=== PATIENT | female | born 1960 | race Caucasian/White ===

== ENCOUNTER 2016-11-24 19:40 | Emergency (ER) | payer OTHER ==
[~2016-11-24] VITALS: Ht 152.4 cm; Wt 84.5 kg
[~2016-11-24 19:40] MED LIST: ERGO500014 PO; FENO145T19 PO; HYDR-902 PO; IBUP-1542 PO; MECL12.574 PO; METO25TA4 PO; OMEP20CA16 PO; ONDA4TAB14 PO; SERT50TA6 PO
[2016-11-24 20:14] VITALS: Ht 152.4 cm; Wt 84.5 kg
--- NOTE | 2016-11-24 22:09 | ERD ---
ER Documentation Chief Complaint Date/Time DATE: 11/24/16 TIME: 22:05 Chief Complaint glf yesterday- right ankle pain; hand/finger pain HPI Patient is a 56-year-old female who presents to the ED with right ankle pain, hand pain, face pain after sustaining a fall yesterday at the grocery store. She states that she tripped over a wooden palate that was on the ground. She said that she landed on the side of her face. She denies hitting her head, blacking out or losing consciousness. She denies headache or dizziness today. She denies blurry vision. Or weakness. She states that she has pain in her right foot. She is able to ambulate but with pain. She also states that she has pain in her right and left hand. She is able to move her fingers. She denies any elbow or shoulder pain. She denies any pain at her ankle or above the ankle at the knee or hip. She denies fever or chills. She denies abdominal pain, nausea, vomiting or diarrhea. She has taken Aleve which has helped with her symptoms. ROS All systems reviewed and are negative except as per history of present illness. Medications Home Meds Active Scripts Acetaminophen* (Tylophen*) 500 Mg Capsule, 1 CAP PO Q6H Y for PAIN AND OR ELEVATED TEMP, #20 CAP Prov:EMANI PULLIAM PA-C 11/24/16 Ondansetron (Ondansetron Odt) 4 Mg Tab.rapdis, 4 MG PO Q6H Y for NAUSEA AND/OR VOMITING, #30 TAB Prov:SANA IRENE MD 09/30/16 Hydrocodone/Acetaminophen ([place] 10-325 Tablet) 1 Each Tablet, 1 TAB PO Q6H Y for PAIN, #12 TAB Prov:SANA IRENE MD 09/30/16 Reported Medications Ergocalciferol* (Drisdol* (Vitamin D2)) 50,000 Unit Capsule, 03242 UNIT PO Q15D , CAP 09/30/16 Metoprolol Tartrate* (Lopressor*) 25 Mg Tablet, 25 MG PO BID, #60 TAB TAKE 1 OR 2 TIMES DAILY 09/30/16 Sertraline Hcl* (Sertraline Hcl*) 50 Mg Tablet, 50 MG PO DAILY, #30 TAB 09/30/16 Omeprazole* (Omeprazole*) 20 Mg Capsule.dr, 20 MG PO DAILY, #30 CAP 09/30/16 Fenofibrate Nanocrystallized* (Fenofibrate*) 145 Mg Tablet, 145 MG PO DAILY, TAB 09/30/16 Meclizine Hcl* (Antivert*) 12.5 Mg Tab, 12.5 MG PO BID, #30 TAB 09/30/16 Ibuprofen* (Ibuprofen*) 600 Mg Tablet, 600 MG PO TID Y for PAIN, TAB 09/30/16 Allergies Allergies: Coded Allergies: No Known Allergy (Unverified , 09/30/16) PMhx/Soc History of Surgery: Yes (appendectomy) Anesthesia Reaction: No Hx Neurological Disorder: No Hx Respiratory Disorders: No Hx Cardiac Disorders: Yes (htn) Hx Psychiatric Problems: No Hx Miscellaneous Medical Probl: No Hx Alcohol Use: No Hx Substance Use: No Hx Tobacco Use: No Physical Exam Vitals Vital Signs Date Time Temp Pulse Resp B/P Pulse Ox O2 Delivery O2 Flow Rate FiO2 11/24/16 20:14 98.7 91 18 144/91 98 Physical Exam GENERAL: Well-developed, well-nourished female. Appears in no acute distress. HEAD: Normocephalic, atraumatic. Small contusion at the left mandible. No signs of fracture or deformities. EYES: Pupils are equally reactive bilaterally. EOMs grossly intact. No conjunctival erythema. ENT: Moist mucous membranes. No uvula deviation. No kissing tonsils. No exudates. NECK: Supple. No lymphadenopathy or thyromegaly. No meningismus. negative kernig. negative brudinski. LUNG: Clear to auscultation bilaterally. No rhonchi, wheezing, rales or coarse breath sounds. HEART: Regular rate and rhythm. No murmurs, rubs or gallops. Extremities: Equal pulses bilaterally. No peripheral clubbing, cyanosis or edema. No unilateral leg swelling. Ecchymosis, slight swelling and tenderness to the dorsal aspect of the foot. Slight tenderness to the base of the fifth metatarsal. No tenderness to both malleoli. No redness, deformities step-offs or signs of infection. Range of motion intact. There is also mild ecchymosis and tenderness to the fifth and fourth digit of the right hand. No tenderness to the wrist arm, elbow or shoulder. Radial ulnar and median nerve intact bilaterally. Pulses intact bilaterally. Patient is able to flex and extend, with good range of motion with no pain. Left hand has slight ecchymosis on the dorsal aspect of the hand. No tenderness to the wrist, elbow, arm or shoulder. No radiation of pain. No snuffbox tenderness bilaterally. NEUROLOGIC: Alert and oriented. Moving all four extremities. 5/5 strength in all extremities. Normal speech. Steady gait. Cranial nerves II through XII intact. SKIN: Normal color. Warm and dry. No rashes or lesions. Capillary refill < 2 seconds Procedures/MDM ER COURSE: I kept the patient and/or family informed of laboratory and diagnostic imaging results throughout the emergency room course. EKG, MONITORS, & DIAGNOSTIC IMAGING: [place] [address] Radiology Main Line: [phone] DIAGNOSTIC IMAGING REPORT Patient: BRITTANY VELA : 1960 Age: 56 Sex: F MR #: [id number] DOS: 11/24/16 2150 Ordering MD: EMANI PULLIAM PA-C Location: [facility] Room/Bed: PROCEDURE: CT Maxillofacial without Contrast CLINICAL INDICATION: History of left base pain after sustaining fall TECHNIQUE: Transaxial images were obtained through the maxillofacial region on a multi-slice scanner without the intravenous contrast administration. Sagittal and coronal re-formations were subsequently reconstructed. One or more of the following dose reduction techniques were used: - Automated exposure control. - Adjustment of the mA and/or kV according to patient size. - Use of iterative reconstruction technique. Radiation dose: CTDIvol = 29.40 mGy; DLP = 495.1 7th mGy-cm. COMPARISON: No prior studies are available for comparison. FINDINGS: Osseous structures: The osseous elements including the mandible appear intact with no fracture or destructive process evident. There is straightening of the normal lordotic curvature to the cervical spine with degenerative endplate changes noted. Paranasal sinuses: Appear well developed and well aerated with no opacification , air-fluid level or mucoperiosteal thickening evident. Mastoid air cells: Appear well pneumatized. Temporomandibular joints: Appear unremarkable. Orbits: The ocular globes, optic nerves, and intraorbital contents appear unremarkable. Soft tissues: Appear unremarkable. IMPRESSION: 1. Straightening of the normal lordotic curvature to the cervical spine with degenerative disk and endplate changes evident. 2. Unremarkable maxillofacial CT. Physician Hi Date Time Electronically viewed and signed by Physician Hi on 11/24/2016 22:30 RH/ CC: EMANI PULLIAM PA-C [place] [address] Radiology Main Line: [phone] DIAGNOSTIC IMAGING REPORT Patient: BRITTANY VELA : 1960 Age: 56 Sex: F MR #: [id number] DOS: 11/24/167 Ordering MD: EMANI PULLIAM PA-C Location: [facility] Room/Bed: PROCEDURE: XR Right Foot CLINICAL INDICATION: Pain TECHNIQUE: AP, oblique, and lateral radiographs were submitted. COMPARISON: None FINDINGS: Osseous structures: appear well mineralized and intact with no fracture or destructive process identified. There is a spurring off the calcaneus at the insertion of the plantar aponeurosis. Joint spaces: are well maintained, with no significant spurring, erosion or joint effusion evident. Soft tissues: There is slight soft tissue prominence dorsal to the metatarsal region. IMPRESSION: 1. Mild calcaneal spurring 2. Soft tissue prominence dorsal to the metatarsals. 3. Otherwise, unremarkable right foot series. Physician Hi Date Time Electronically viewed and signed by Physician Hi on 11/24/2016 22:14 RH/ CC: EMANI PULLIAM PA-C [place] [address] Radiology Main Line: [phone] DIAGNOSTIC IMAGING REPORT Patient: BRITTANY VELA : 1960 Age: 56 Sex: F MR #: [id number] DOS: 11/24/162146 Ordering MD: EMANI PULLIAM PA-C Location: [facility] Room/Bed: PROCEDURE: XR Right Hand CLINICAL INDICATION: Pain TECHNIQUE: AP, oblique, and lateral radiographs were submitted. COMPARISON: None FINDINGS: Osseous structures: appear well mineralized and intact with no fracture or destructive process identified. Joint spaces: are well maintained, with no significant spurring, erosion or joint effusion evident. Soft tissues: appear unremarkable. IMPRESSION: Unremarkable right hand. Physician Hi Date Time Electronically viewed and signed by Physician Hi on 11/24/2016 22:16 RH/ CC: EMANI PULLIAM PA-C [place] [address] Radiology Main Line: [phone] DIAGNOSTIC IMAGING REPORT Patient: BRITTANY VELA : 1960 Age: 56 Sex: F MR #: [id number] DOS: 11/24/162146 Ordering MD: EMANI PULLIAM PA-C Location: [facility] Room/Bed: PROCEDURE: XR Left Hand CLINICAL INDICATION: Pain TECHNIQUE: AP, oblique, and lateral radiographs were submitted. COMPARISON: None FINDINGS: Osseous structures: appear well mineralized and intact with no fracture or destructive process identified. Joint spaces: are well maintained, with no significant spurring, erosion or joint effusion evident. Soft tissues: appear unremarkable. IMPRESSION: Unremarkable left hand. Physician Hi Date Time Electronically viewed and signed by Physician Hi on 11/24/2016 22:13 RH/ CC: EMANI PULLIAM PA-C PROCEDURES: Ed velcro splint Assessment: Neurovascularly intact post splint placement with good fit on right and left wrist. vika wrap Assessment: Neurovascularly intact post vika wrap placement with good fit. MEDICAL DECISION MAKING: This is a 56-year-old female who presents with multiple areas of pain after sustaining a fall. Vital signs were reviewed. Patient is afebrile. Patient is not hypoxic. Patient is not toxic or ill appearing. Patient likely has wrist bilaterally sprain, and foot contusion and face contusion. Low suspicion for dislocation, fracture, septic joint, compartment syndrome, osteomyelitis, cellulitis, avascular necrosis, neurological injury, vascular injury, tendon laceration however cannot rule out ligament or tendon injury. I have low suspicion for scaphoid fracture as she does not have snuffbox tenderness and x- ray did not reveal this. I do not think a CT of the brain was necessary at this time as patient does not have headache, dizziness and did not hit her head. She did not blackout or lose consciousness. Her cranial nerves II through XII are intact. And neurovascularly intact and hemodynamically stable. I have low suspicion for arm, elbow or shoulder fractures or injuries. She does not have tenderness at these sites, no swelling, redness or deformities and good rom. DISCHARGE: At this time, patient is stable for discharge and outpatient management with no new complaints during the ER course. Patient was sent home with Tylenol. Patient will be discharged home with instructions to recheck for new or worsening symptoms such as fever, nausea, weakness, LOC and to follow up with primary care in the next 1-2 days. Patient was advised to return to the ER for any new or worsening symptoms. Plan was discussed and patient and/or family understands and agrees. Home instructions were given. Departure Diagnosis: Primary Impression: Fall Encounter type: initial encounter Qualified Code: W19.XXXA - Fall, initial encounter Condition: Stable EMANI PULLIAM PA-C Nov 24, 2016 22:08
--- NOTE | 2016-11-24 22:13 | RADRPT ---
PROCEDURE: XR Left Hand CLINICAL INDICATION: Pain TECHNIQUE: AP, oblique, and lateral radiographs were submitted. COMPARISON: None FINDINGS: Osseous structures: appear well mineralized and intact with no fracture or destructive process iden tified. Joint spaces: are well maintained, with no significant spurring, erosion or joint effusion evident. Soft tissues: appear unremarkable. IMPRESSION: Unremarkable left hand. Physician Hi Date Time Electronically viewed and signed by Physician Hi on 11/24/2016 22:13 /
--- NOTE | 2016-11-24 22:14 | RADRPT ---
PROCEDURE: XR Right Foot CLINICAL INDICATION: Pain TECHNIQUE: AP, oblique, and lateral radiographs were submitted. COMPARISON: None FINDINGS: Osseous structures: appear well mineralized and intact with no fracture or destructive process iden tified. There is a spurring off the calcaneus at the insertion of the plantar aponeurosis. Joint spaces: are well maintained, with no significant spurring, erosion or joint effusion evident. Soft tissues: There is slight soft tissue prominence dorsal to the metatarsal region. IMPRESSION: 1. Mild calcaneal spurring 2. Soft tissue prominence dorsal to the metatarsals. 3. Otherwise, unremarkable right foot series. Physician Hi Date Time Electronically viewed and signed by Physician Hi on 11/24/2016 22:14 /
--- NOTE | 2016-11-24 22:16 | RADRPT ---
PROCEDURE: XR Right Hand CLINICAL INDICATION: Pain TECHNIQUE: AP, oblique, and lateral radiographs were submitted. COMPARISON: None FINDINGS: Osseous structures: appear well mineralized and intact with no fracture or destructive process iden tified. Joint spaces: are well maintained, with no significant spurring, erosion or joint effusion evident. Soft tissues: appear unremarkable. IMPRESSION: Unremarkable right hand. Physician Hi Date Time Electronically viewed and signed by Physician Hi on 11/24/2016 22:16 /
--- NOTE | 2016-11-24 22:30 | RADRPT ---
PROCEDURE: CT Maxillofacial without Contrast CLINICAL INDICATION: History of left base pain after sustaining fall TECHNIQUE: Transaxial images were obtained through the maxillofacial region on a multi-slice scan er without the intravenous contrast administration. Sagittal and coronal re-formations were subseque ntly reconstructed. One or more of the following dose reduction techniques were used: - Automated exposure control. - Adjustment of the mA and/or kV according to patient size. - Use of iterative reconstruction technique. Radiation dose: CTDIvol = 29.40 mGy; DLP = 495.1 7th mGy-cm. COMPARISON: No prior studies are available for comparison. FINDINGS: Osseous structures: The osseous elements including the mandible appear intact with no fracture or de structive process evident. There is straightening of the normal lordotic curvature to the cervical s pine with degenerative endplate changes noted. Paranasal sinuses: Appear well developed and well aerated with no opacification, air-fluid level or mucoperiosteal thickening evident. Mastoid air cells: Appear well pneumatized. Temporomandibular joints: Appear unremarkable. Orbits: The ocular globes, optic nerves, and intraorbital contents appear unremarkable. Soft tissues: Appear unremarkable. IMPRESSION: 1. Straightening of the normal lordotic curvature to the cervical spine with degenerative disk and endplate changes evident. 2. Unremarkable maxillofacial CT. Physician Hi Date Time Electronically viewed and signed by Physician Hi on 11/24/2016 22:30 /
[2016-11-24] MEDS ORDERED: ACET500C5 PO (22:57)
== END 2016-11-24 22:58 | disposition home or self-care (01) ==
LOC: FTE 19:40
DX: S99.911A Unspecified injury of right ankle, initial encounter (principal); S69.91XA Unspecified injury of right wrist, hand and finger(s), initial encounter; S69.92XA Unspecified injury of left wrist, hand and finger(s), initial encounter; S09.93XA Unspecified injury of face, initial encounter; I10 Essential (primary) hypertension; W01.0XXA Fall on same level from slipping, tripping and stumbling without subsequent striking against object, initial encounter; Y92.9 Unspecified place or not applicable
CPT/HCPCS: 29125; 70486; 73130; 73630; Z7502

== ENCOUNTER 2017-04-14 10:37 | Emergency (ER) | payer OTHER ==
[~2017-04-14] VITALS: Ht 152.4 cm; Wt 82.5 kg
[~2017-04-14 10:37] MED LIST changes: +ACET500C5 PO
[2017-04-14 10:39] VITALS: Ht 152.4 cm; Wt 82.5 kg
[2017-04-14] MEDS ORDERED: ONDANSETRON (ODT) 4 MG TAB ODT STA (12:16)
[2017-04-14] MEDS ORDERED: ACETAMINOPHEN 325 MG TAB PO ONE (12:30)
[2017-04-14] MEDS ORDERED: MECLIZINE 12.5 MG TAB PO ONE (12:30)
[2017-04-14 12:58] LABS: URINE BLOOD (Dip) POC Negative (NEGATIVE)
--- NOTE | 2017-04-14 13:23 | RADRPT ---
PROCEDURE: CT brain without contrast CLINICAL INDICATION: Headaches, dizziness TECHNIQUE: CT of the brain without contrast was performed on a multidetector CT scanner, with multi planar reformats. One or more of the following dose reduction techniques were used: Automated expos ure control, adjustment in mA and / or kV according to patient size, use of iterative reconstructive technique. CTDIvol = 43 mGy; DLP = 630 mGy-cm. COMPARISON: None available FINDINGS: No acute intracranial hemorrhage is identified. No extra-axial fluid collection is seen. There is no mass effect. No midline shift is identified. The ventricles/sulci are mildly enlarged compatible with generalized volume loss. The density of the brain is unremarkable. Aguilar-white differentiation is preserved. Partly empty se lla is noted. Osseous structures are unremarkable. Mastoid air cells and imaged paranasal sinuses grossly clear. IMPRESSION: 1. No evidence of acute intracranial pathology. 2. Mild generalized volume loss. RPTAT: AA .Reza Farrar MD, Date Time Electronically viewed and signed by .Reza Farrar MD, on 04/14/2017 13:23 .O/
[2017-04-14] MEDS ORDERED: MECL-77 PO (13:30)
[2017-04-14] MEDS ORDERED: ACET500C5 PO (13:30)
--- NOTE | 2017-04-14 13:52 | ERD ---
ER Documentation Chief Complaint Date/Time DATE: 04/14/17 TIME: 13:49 Chief Complaint DIZZINESS,HEADACHE X 5 DAYS HPI Patient is a 56-year-old female with a past medical history of hypertension and hypercholesterol who presents to the ED with headache and dizziness for the last week. She states that the pain is located on the top part of her head. She states that the headache is slightly different than what she has experienced in the past. She also states that she feels dizzy. The symptoms come and go and are not constant. She denies stating that this is the worst headache of her life. She usually takes metoprolol but did not take her medication today. She denies blurry vision. Denies neck pain. Denies chest pain or cough or shortness of breath. Denies leg pain or leg swelling. She has no other complaints today. ROS All systems reviewed and are negative except as per history of present illness. Medications Home Meds Active Scripts Acetaminophen* (Tylophen*) 500 Mg Capsule, 1 CAP PO Q6H Y for PAIN AND OR ELEVATED TEMP, #20 CAP Prov:EMANI PULLIAM PA-C 04/14/17 Meclizine Hcl* (Meclizine Hcl*) 25 Mg Tablet, 25 MG PO Q8H Y for DIZZINESS for 14 Days, TAB Prov:EMANI PULLIAM PA-C 04/14/17 Acetaminophen* (Tylophen*) 500 Mg Capsule, 1 CAP PO Q6H Y for PAIN AND OR ELEVATED TEMP, #20 CAP Prov:EMANI PULLIAM PA-C 11/24/16 Ondansetron (Ondansetron Odt) 4 Mg Tab.rapdis, 4 MG PO Q6H Y for NAUSEA AND/OR VOMITING, #30 TAB Prov:SANA IRENE MD 09/30/16 Hydrocodone/Acetaminophen ([place] 10-325 Tablet) 1 Each Tablet, 1 TAB PO Q6H Y for PAIN, #12 TAB Prov:SANA IRENE MD 09/30/16 Reported Medications Ergocalciferol* (Drisdol* (Vitamin D2)) 50,000 Unit Capsule, 68155 UNIT PO Q15D , CAP 09/30/16 Metoprolol Tartrate* (Lopressor*) 25 Mg Tablet, 25 MG PO BID, #60 TAB TAKE 1 OR 2 TIMES DAILY 09/30/16 Sertraline Hcl* (Sertraline Hcl*) 50 Mg Tablet, 50 MG PO DAILY, #30 TAB 09/30/16 Omeprazole* (Omeprazole*) 20 Mg Capsule.dr, 20 MG PO DAILY, #30 CAP 09/30/16 Fenofibrate Nanocrystallized* (Fenofibrate*) 145 Mg Tablet, 145 MG PO DAILY, TAB 09/30/16 Meclizine Hcl* (Antivert*) 12.5 Mg Tab, 12.5 MG PO BID, #30 TAB 09/30/16 Ibuprofen* (Ibuprofen*) 600 Mg Tablet, 600 MG PO TID Y for PAIN, TAB 09/30/16 Allergies Allergies: Coded Allergies: No Known Allergy (Unverified , 09/30/16) PMhx/Soc History of Surgery: Yes (appendectomy) Anesthesia Reaction: No Hx Neurological Disorder: No Hx Respiratory Disorders: No Hx Cardiac Disorders: Yes (htn) Hx Psychiatric Problems: No Hx Miscellaneous Medical Probl: Yes (VERTIGO) Hx Alcohol Use: No Hx Substance Use: No Hx Tobacco Use: No FmHx Family History: No coronary disease, No diabetes, No other Physical Exam Vitals Vital Signs Date Time Temp Pulse Resp B/P Pulse Ox O2 Delivery O2 Flow Rate FiO2 04/14/17 10:39 98.7 97 18 171/92 97 Physical Exam GENERAL: Well-developed, well-nourished female. Appears in no acute distress. HEAD: Normocephalic, atraumatic. EYES: Pupils are equally reactive bilaterally. EOMs grossly intact. No conjunctival erythema. No nystagmus. ENT: Moist mucous membranes. No uvula deviation. No kissing tonsils. No exudates. NECK: Supple. No lymphadenopathy or thyromegaly. No meningismus. negative kernig. negative brudinski. LUNG: Clear to auscultation bilaterally. No rhonchi, wheezing, rales or coarse breath sounds. HEART: Regular rate and rhythm. No murmurs, rubs or gallops. ABDOMEN: No scars, ecchymosis or rashes noted. Soft, nontender, and nondistended. Positive bowel sounds in all four quadrants. No rebound tenderness , no guarding. (-) McBurneys point tenderness. No CVA tenderness. BACK: No midline tenderness. Extremities: Equal pulses bilaterally. No peripheral clubbing, cyanosis or edema. No unilateral leg swelling. NEUROLOGIC: Alert and oriented. Moving all four extremities. 5/5 strength in all extremities. Normal speech. Steady gait. No ataxia. Negative Romberg test. Cranial nerves II through XII intact. SKIN: Normal color. Warm and dry. No rashes or lesions. Capillary refill < 2 seconds Results 24 hrs Laboratory Tests Test 04/14/17 13:01 Bedside Urine pH (LAB) 6.0 Bedside Urine Protein (LAB) Negative Bedside Urine Glucose (UA) Negative Bedside Urine Ketones (LAB) Negative Bedside Urine Blood Negative Bedside Urine Nitrite (LAB) Negative Bedside Urine Leukocyte Esterase (L Negative Current Medications Medications (Trade) Dose Ordered Sig/Taty Route PRN Reason Start Time Stop Time Status Last Admin Dose Admin Meclizine HCl (Antivert) 12.5 mg ONCE ONCE PO 04/14/17 12:30 04/14/17 12:31 DC 04/14/17 12:26 Acetaminophen (Tylenol Tab) 650 mg ONCE ONCE PO 04/14/17 12:30 04/14/17 12:31 DC 04/14/17 12:26 Ondansetron HCl (Zofran Odt) 4 mg ONCE STAT ODT 04/14/17 12:16 04/14/17 12:18 DC 04/14/17 12:25 Procedures/MDM ER COURSE: I kept the patient and/or family informed of laboratory and diagnostic imaging results throughout the emergency room course. MEDICATIONS Tylenol, meclizine. Tolerated well with no adverse reaction. IMAGING STUDIES [place] [address] Radiology Main Line: [phone] DIAGNOSTIC IMAGING REPORT Patient: BRITTANY VELA : 1960 Age: 56 Sex: F MR #: [id number] DOS: 04/14/17 1216 Ordering MD: EMANI PULLIAM PA-C Location: [facility] Room/Bed: PROCEDURE: CT brain without contrast CLINICAL INDICATION: Headaches, dizziness TECHNIQUE: CT of the brain without contrast was performed on a multidetector CT scanner, with multiplanar reformats. One or more of the following dose reduction techniques were used: Automated exposure control, adjustment in mA and / or kV according to patient size, use of iterative reconstructive technique. CTDIvol = 43 mGy; DLP = 630 mGy-cm. COMPARISON: None available FINDINGS: No acute intracranial hemorrhage is identified. No extra-axial fluid collection is seen. There is no mass effect. No midline shift is identified. The ventricles/sulci are mildly enlarged compatible with generalized volume loss. The density of the brain is unremarkable. Aguilar-white differentiation is preserved. Partly empty sella is noted. Osseous structures are unremarkable. Mastoid air cells and imaged paranasal sinuses grossly clear. IMPRESSION: 1. No evidence of acute intracranial pathology. 2. Mild generalized volume loss. RPTAT: AA .Reza Farrar MD, Date Time Electronically viewed and signed by .Reza Farrar MD, on 04/14/2017 13:23 .O/ CC: EMANI PULLIAM PA-C EKG performed, read by DR MALAVE 104bpm, sinus tachycardia, normal axis, no acute ST segment changes, no T wave inversion MEDICAL DECISION MAKING: This is a 56-year-old female with past medical history hypertension who presents with headache and dizziness on and off for the last week. Vital signs were reviewed. Patient is afebrile. Patient is not hypoxic. Patient is not toxic or ill-appearing. Her CT scan is read by radiologist is unremarkable. Patient has headache of unknown etiology. Low suspicion for intracranial hemorrhage, meningitis, intracranial mass, concussion, temporal arteritis, stroke, elevated intracranial pressure, seizure. I have low suspicion for hypertensive urgency or emergency or endorgan damage. DISCHARGE: At this time, patient is stable for discharge and outpatient management with no new complaints during the ER course. Patient was sent home with copy of imaging report, meclizine, Zofran and Tylenol and to follow-up with her primary care provider regarding her blood pressure.. Patient will be discharged home with instructions to recheck for new or worsening symptoms such as fever, nausea, weakness, LOC and to follow up with primary care in the next 1-2 days. Patient was advised to return to the ER for any new or worsening symptoms. Plan was discussed and patient and/or family understands and agrees. Home instructions were given. Departure Diagnosis: Primary Impression: Headache Headache type: unspecified Headache chronicity pattern: unspecified pattern Intractability: not intractable Qualified Code: R51 - Nonintractable headache, unspecified chronicity pattern, unspecified headache type Condition: Stable Patient Instructions: Self-Care for Headaches Additional Instructions: Call your primary care doctor TOMORROW for an appointment during the next 1-2 days.See the doctor sooner or return here if your condition worsens before your appointment time. EMANI PULLIAM PA-C Apr 14, 2017 13:52
[2017-04-14 14:00] VITALS: BP 143/89; PULSE 116; RESP 20; TEMP 98.3
== END 2017-04-14 14:03 | disposition home or self-care (01) ==
LOC: FTE 10:37
DX: R51 Headache (principal); I10 Essential (primary) hypertension
CPT/HCPCS: 70450; 81003; Z7610; 93005

== ENCOUNTER 2017-04-15 00:06 | Emergency (ER) | payer OTHER ==
[~2017-04-15] VITALS: Ht 162.6 cm; Wt 83.0 kg
[~2017-04-15 00:06] MED LIST changes: +MECL-77 PO
[2017-04-15 00:44] VITALS: Ht 162.6 cm; Wt 83.0 kg
[2017-04-15] MEDS ORDERED: SODIUM CHLORIDE 0.9% 1L BAG IV* STA (02:26)
--- NOTE | 2017-04-15 02:48 | RADRPT ---
PROCEDURE: Portable chest x-ray. CLINICAL INDICATION: Sepsis. TECHNIQUE: Portable AP view of the chest. COMPARISON: None. FINDINGS: No pulmonary edema or conolidation is identified. The cardiac silhouette is magnified. No pleural effusion is seen. There is no pneumothorax. IMPRESSION: 1. No evidence of acute cardiopulmonary disease. RPTAT: HTAR .Zenon Galindo MD, MD Date Time Electronically viewed and signed by .Zenon Galindo MD, on 04/15/2017 02:47 .R/
[2017-04-15 02:57] LABS: ADD SCAN DIFF NO
[2017-04-15 02:59] LABS: BASOPHILS % 0.1 % (0.0-2.0); EOSINOPHILS % 0.4 % (0.0-7.0); HEMATOCRIT 42.2 % (37.0-47.0); HEMOGLOBIN 14.2 g/dl (12.0-16.0); LYMPHOCYTES # 0.9 10^3/ul (0.8-2.9); MEAN CORPUSCULAR HEMOGLOBIN 30.4 pg (29.0-33.0); MEAN CORPUSCULAR HGB CONC 33.6 g/dl (32.0-37.0); MEAN CORPUSCULAR VOLUME 90.4 fl (82.0-101.0); MONOCYTE # 0.4 10^3/ul (0.3-0.9); MONOCYTES % 4.9 % (0.0-11.0); NEUTROPHILS % 82.1 % (39.0-77.0); PLATELET COUNT 343 10^3/UL (140-415); RED BLOOD COUNT 4.67 10^6/ul (4.20-5.40); RED CELL DISTRIBUTION WIDTH 12.2 % (11.5-14.5); WHITE BLOOD COUNT 7.3 10^3/ul (4.8-10.8)
[2017-04-15 03:13] LABS: INR 1.1; PROTIME 14.2 Sec (12.2-14.2); PT RATIO 1.1
[2017-04-15 03:14] LABS: PARTIAL THROMBOPLASTIN TIME 27.9 Sec (25.0-35.0)
[2017-04-15 03:36] LABS: ALANINE AMINOTRANSFERASE 38 IU/L (13-69); ALBUMIN 4.8 g/dl (3.3-4.9); ALBUMIN/GLOBULIN RATIO 1.77; ALKALINE PHOSPHATASE 93 IU/L (42-121); ANION GAP 15 (8-16); ASPARTATE AMINO TRANSFERASE 22 IU/L (15-46); BILIRUBIN,INDIRECT 0.6 mg/dl (0-1.1); BILIRUBIN,TOTAL 0.6 mg/dl (0.2-1.3); BLOOD UREA NITROGEN 26 mg/dl (7-20); CALCIUM 8.6 mg/dl (8.4-10.2); CARBON DIOXIDE 26 mmol/L (21-31); CHLORIDE 108 mmol/L (97-110); CREATININE 0.77 mg/dl (0.44-1.00); GLUCOSE 122 mg/dl (70-220); SODIUM 145 mmol/L (135-144); TOTAL PROTEIN 7.5 g/dl (6.1-8.1)
[2017-04-15 03:53] LABS: TROPONIN-I < 0.012 ng/ml (0.00-0.12)
--- NOTE | 2017-04-15 04:21 | ERD ---
ER Documentation Chief Complaint Date/Time DATE: 04/15/17 TIME: 04:21 Chief Complaint WEAKNESS X 5 DAYS,NAUSEA, STATES WAS SEEN HERE EARLIER HPI This is a 46-year-old female presents to the emergency room for evaluation of nausea, generalized weakness. She states that she was seen earlier in the emergency room and had a CAT scan of her brain which was normal. She states that she had no lab work drawn and was discharged home. She returns today because she states that she has a fever. She is feeling generally weak. The patient states that she has had a runny nose, denies any chest pain or palpitations or shortness of breath or headache or nausea or vomiting associated with this. ROS All systems reviewed and are negative except as per history of present illness. Medications Home Meds Active Scripts Acetaminophen* (Tylophen*) 500 Mg Capsule, 1 CAP PO Q6H Y for PAIN AND OR ELEVATED TEMP, #20 CAP Prov:EMANI PULLIAM PA-C 04/14/17 Meclizine Hcl* (Meclizine Hcl*) 25 Mg Tablet, 25 MG PO Q8H Y for DIZZINESS for 14 Days, TAB Prov:EMANI PULLIAM PA-C 04/14/17 Acetaminophen* (Tylophen*) 500 Mg Capsule, 1 CAP PO Q6H Y for PAIN AND OR ELEVATED TEMP, #20 CAP Prov:EMANI PULLIAM PA-C 11/24/16 Ondansetron (Ondansetron Odt) 4 Mg Tab.rapdis, 4 MG PO Q6H Y for NAUSEA AND/OR VOMITING, #30 TAB Prov:SANA IRENE MD 09/30/16 Hydrocodone/Acetaminophen ([place] 10-325 Tablet) 1 Each Tablet, 1 TAB PO Q6H Y for PAIN, #12 TAB Prov:SANA IRENE MD 09/30/16 Reported Medications Ergocalciferol* (Drisdol* (Vitamin D2)) 50,000 Unit Capsule, 23339 UNIT PO Q15D , CAP 09/30/16 Metoprolol Tartrate* (Lopressor*) 25 Mg Tablet, 25 MG PO BID, #60 TAB TAKE 1 OR 2 TIMES DAILY 09/30/16 Sertraline Hcl* (Sertraline Hcl*) 50 Mg Tablet, 50 MG PO DAILY, #30 TAB 09/30/16 Omeprazole* (Omeprazole*) 20 Mg Capsule.dr, 20 MG PO DAILY, #30 CAP 09/30/16 Fenofibrate Nanocrystallized* (Fenofibrate*) 145 Mg Tablet, 145 MG PO DAILY, TAB 09/30/16 Meclizine Hcl* (Antivert*) 12.5 Mg Tab, 12.5 MG PO BID, #30 TAB 09/30/16 Ibuprofen* (Ibuprofen*) 600 Mg Tablet, 600 MG PO TID Y for PAIN, TAB 09/30/16 Allergies Allergies: Coded Allergies: No Known Allergy (Unverified , 09/30/16) PMhx/Soc History of Surgery: Yes (appendectomy) Anesthesia Reaction: No Hx Neurological Disorder: No Hx Respiratory Disorders: No Hx Cardiac Disorders: Yes (htn) Hx Psychiatric Problems: No Hx Miscellaneous Medical Probl: Yes (VERTIGO) Hx Alcohol Use: No Hx Substance Use: No Hx Tobacco Use: No Smoking Status: Unknown if ever smoked Physical Exam Vitals Vital Signs Date Time Temp Pulse Resp B/P Pulse Ox O2 Delivery O2 Flow Rate FiO2 04/15/17 00:44 100.0 112 18 140/91 93 Physical Exam INITIAL VITAL SIGNS: Reviewed by me GENERAL: The patient is well developed and appropriate for usual state of health in no apparent distress HEENT: Pupils equal, round, and reactive to light. EOMI. There is no scleral icterus. NECK: C-spine is soft and supple, there is no meningismus. There is no cervical lymphadenopathy. LUNGS: Clear to auscultation bilaterally. There are no rales, wheezes or rhonchi. HEART: Tachycardic, no murmurs, clicks, rubs or gallops. ABDOMEN: Soft, non-tender, non-distended. There are bowel sounds in all four quadrants. No rebound or guarding. EXTREMITIES: There is no peripheral cyanosis or edema. No focal swelling or erythema. NEUROLOGICAL: The patient moves all four extremities with 5/5 strength. Cranial nerves II - XII are intact. Normal gait. Alert and oriented SKIN: There is no apparent rash or petechiae. HEME/LYMPHATIC: There is no evidence of excessive bruising or lymphedema. PSYCHIATRIC: The patient does not appear anxious or depressed. Result Diagram: 04/15/17 0243 04/15/17 0243 Results 24 hrs Laboratory Tests Test 04/15/17 02:43 04/15/17 03:45 White Blood Count 7.310^3/ul Red Blood Count 4.6710^6/ul Hemoglobin 14.2g/dl Hematocrit 42.2% Mean Corpuscular Volume 90.4fl Mean Corpuscular Hemoglobin 30.4pg Mean Corpuscular Hemoglobin Concent 33.6g/dl Red Cell Distribution Width 12.2% Platelet Count 92820^3/UL Mean Platelet Volume 9.0fl Neutrophils % 82.1% Lymphocytes % 12.0% Monocytes % 4.9% Eosinophils % 0.4% Basophils % 0.1% Nucleated Red Blood Cells % 0.0/100WBC Neutrophils # 6.010^3/ul Lymphocytes # 0.910^3/ul Monocytes # 0.410^3/ul Eosinophils # 0.010^3/ul Basophils # 0.010^3/ul Nucleated Red Blood Cells # 0.010^3/ul Prothrombin Time 14.2Sec Prothrombin Time Ratio 1.1 INR International Normalized Ratio 1.10 Activated Partial Thromboplast Time 27.9Sec Sodium Level 145mmol/L Potassium Level 4.0mmol/L Chloride Level 108mmol/L Carbon Dioxide Level 26mmol/L Anion Gap 15 Blood Urea Nitrogen 26mg/dl Creatinine 0.77mg/dl Glucose Level 122mg/dl Lactic Acid Level 1.1mmol/L Calcium Level 8.6mg/dl Total Bilirubin 0.6mg/dl Direct Bilirubin 0.00mg/dl Indirect Bilirubin 0.6mg/dl Aspartate Amino Transf (AST/SGOT) 22IU/L Alanine Aminotransferase (ALT/SGPT) 38IU/L Alkaline Phosphatase 93IU/L Troponin I < 0.012ng/ml Total Protein 7.5g/dl Albumin 4.8g/dl Globulin 2.70g/dl Albumin/Globulin Ratio 1.77 Urine Color LT. YELLOW Urine Clarity CLEAR Urine pH 6.0 Urine Specific [place] 1.015 Urine Ketones NEGATIVE Urine Nitrite NEGATIVE Urine Bilirubin NEGATIVE Urine Urobilinogen 0.2 E.U./dL Urine Leukocyte Esterase NEGATIVE Urine Hemoglobin NEGATIVE Urine Glucose NEGATIVE% Urine Total Protein NEGATIVE Current Medications Medications (Trade) Dose Ordered Sig/Taty Route PRN Reason Start Time Stop Time Status Last Admin Dose Admin Sodium Chloride (NS) 2,570 ml BOLUS OVER 2 HOURS STAT IV* 04/15/17 02:26 6/3/17 02:27 DC 04/15/17 02:50 Procedures/MDM Chest X-ray 1V Interpreted by me: Soft Tissue: No acute abnormalities Bones: No acute abnormalities Mediastinum/Cardiac Silhouette/Lungs: [No acute abnormalities] EKG: Rate/Rhythm: [Normal Sinus Rhythm] QRS, ST, T-waves: [No changes consistent w/ acute ischemia] Impression: [No evidence of ischemia or arrhythmia] This 56-year-old female presents to the emergency room for evaluation of generalized weakness. When I evaluated this patient was mildly tachycardic with a low-grade fever. A septic workup was started on this patient. Lab work was obtained which is not showing any signs of leukocytosis. Chest x-ray is clear. Urinalysis is also within normal limits. The patient was given fluids in the emergency room and a pulmonary evaluation the patient is no longer tachycardic. She has a heart rate of 84 bpm. Her blood pressure is 127/64 and she is in no acute distress. I advised the patient she could be suffering from a viral syndrome. There is no sign of infection that we can see here in the emergency room. This patient will be discharged at this time with instructions to follow-up with her primary care physician or return to the ER if her symptoms worsen. She verbalized understanding and is okay to plan of care. Departure Diagnosis: Primary Impression: Acute weakness Additional Impression: Prerenal azotemia Condition: Stable JOHN GALEANO DO Apr 15, 2017 04:21
[2017-04-15 04:30] VITALS: BP 114/76; PULSE 100; RESP 20
[2017-04-15 04:33] LABS: ADD UMIC NO; URINE BILIRUBIN (Dip) NEGATIVE (NEGATIVE); URINE BLOOD (Dip) NEGATIVE (NEGATIVE); URINE COLOR LT. YELLOW (YELLOW); URINE GLUCOSE (Dip) NEGATIVE (NEGATIVE); URINE KETONES (Dip) NEGATIVE (NEGATIVE); URINE LEUKOCYTE ESTERASE (Dip) NEGATIVE (NEGATIVE); URINE NITRITE (Dip) NEGATIVE (NEGATIVE); URINE TOTAL PROTEIN (Dip) NEGATIVE (NEGATIVE); URINE UROBILINOGEN (Dip) 0.2 E.U./dL (0.1-1.0)
== END 2017-04-15 05:10 | disposition home or self-care (01) ==
LOC: E/R 00:06
DX: R53.1 Weakness (principal); R40.2252 Coma scale, best verbal response, oriented, at arrival to emergency department; R39.2 Extrarenal uremia; I10 Essential (primary) hypertension; R40.2142 Coma scale, eyes open, spontaneous, at arrival to emergency department; R07.9 Chest pain, unspecified; R40.2362 Coma scale, best motor response, obeys commands, at arrival to emergency department
CPT/HCPCS: 36415; 71010; 80053; 81003; 83605; 84484; 85025; 85610; 85730; 87040; 87086; 93005; J7030; Z7502

== ENCOUNTER 2017-05-13 01:54 | Emergency (ER) | payer OTHER ==
[~2017-05-13] VITALS: Wt 80.0 kg
--- NOTE | 2017-05-13 03:20 | ERA ---
ER Documentation Chief Complaint Date/Time DATE: 05/13/17 TIME: 03:19 Chief Complaint abdominal pain x 3 days HPI The patient is a 56-year-old female, presenting to the ER because of intermittent abdominal pain for the last 3 days, had similar symptoms previously , denies fever, chills, neck pain, chest pain, dyspnea. She complains of nausea but no vomiting, denies diarrhea, constipation, dysuria, polyuria. She does not smoke nor drink Past medical history: Hypertension, dyslipidemia Past surgical history: Appendectomy ROS All systems reviewed and are negative except as per history of present illness. Medications Home Meds Active Scripts Ondansetron (Ondansetron Odt) 4 Mg Tab.rapdis, 4 MG PO Q6H Y for NAUSEA AND/OR VOMITING, #10 TAB Prov:DIANA KEARNS MD 05/13/17 Hydrocodone/Acetaminophen ([place] 5-325 Tablet) 1 Each Tablet, 1 TAB PO Q6H Y for PAIN, #10 TAB Prov:DIANA KEARNS MD 05/13/17 Reported Medications Ergocalciferol* (Drisdol* (Vitamin D2)) 50,000 Unit Capsule, 72679 UNIT PO Q15D , CAP 09/30/16 Metoprolol Tartrate* (Lopressor*) 25 Mg Tablet, 25 MG PO BID, #60 TAB TAKE 1 OR 2 TIMES DAILY 09/30/16 Sertraline Hcl* (Sertraline Hcl*) 50 Mg Tablet, 50 MG PO DAILY, #30 TAB 09/30/16 Omeprazole* (Omeprazole*) 20 Mg Capsule.dr, 20 MG PO DAILY, #30 CAP 09/30/16 Fenofibrate Nanocrystallized* (Fenofibrate*) 145 Mg Tablet, 145 MG PO DAILY, TAB 09/30/16 Meclizine Hcl* (Antivert*) 12.5 Mg Tab, 12.5 MG PO BID, #30 TAB 09/30/16 Ibuprofen* (Ibuprofen*) 600 Mg Tablet, 600 MG PO TID Y for PAIN, TAB 09/30/16 Discontinued Scripts Acetaminophen* (Tylophen*) 500 Mg Capsule, 1 CAP PO Q6H Y for PAIN AND OR ELEVATED TEMP, #20 CAP Prov:EMANI PULLIAM PA-C 04/14/17 Meclizine Hcl* (Meclizine Hcl*) 25 Mg Tablet, 25 MG PO Q8H Y for DIZZINESS for 14 Days, TAB Prov:EMANI PULLIAM PA-C 04/14/17 Acetaminophen* (Tylophen*) 500 Mg Capsule, 1 CAP PO Q6H Y for PAIN AND OR ELEVATED TEMP, #20 CAP Prov:EMANI PULLIAM PA-C 11/24/16 Ondansetron (Ondansetron Odt) 4 Mg Tab.rapdis, 4 MG PO Q6H Y for NAUSEA AND/OR VOMITING, #30 TAB Prov:SANA IRENE MD 09/30/16 Hydrocodone/Acetaminophen ([place] 10-325 Tablet) 1 Each Tablet, 1 TAB PO Q6H Y for PAIN, #12 TAB Prov:SANA IRENE MD 09/30/16 Allergies Allergies: Coded Allergies: No Known Allergy (Unverified , 05/13/17) PMhx/Soc History of Surgery: Yes (appendectomy) Anesthesia Reaction: No Hx Neurological Disorder: No Hx Respiratory Disorders: No Hx Cardiac Disorders: Yes (htn) Hx Psychiatric Problems: No Hx Miscellaneous Medical Probl: Yes (VERTIGO) Hx Alcohol Use: No Hx Substance Use: No Hx Tobacco Use: No Physical Exam Vitals Vital Signs Date Time Temp Pulse Resp B/P Pulse Ox O2 Delivery O2 Flow Rate FiO2 05/13/17 06:47 98.5 71 21 133/68 98 Room Air 05/13/17 02:02 100.5 130 20 144/86 97 Physical Exam Const: No acute distress. Head: Atraumatic. Eyes: Normal Conjunctiva. ENT: Normal External Ears, Nose and Mouth. Neck: Full range of motion. No meningismus. Resp: Clear to auscultation bilaterally. Cardio: Regular but tachycardic Abd: Soft, non distended, normal bowel sounds, vague and diffuse abdominal tenderness, more tender at the right upper quadrant, no rigidity, rebound, CVA tenderness Skin: No petechiae or rashes. Back: No midline or flank tenderness. Ext: No cyanosis, or edema. Neur: Awake and alert. No focal deficit Psych: Normal Mood and Affect. Result Diagram: 05/13/17 0353 05/13/17 0353 Results 24 hrs Laboratory Tests Test 05/13/17 03:53 05/13/17 04:01 White Blood Count 14.510^3/ul Red Blood Count 4.4710^6/ul Hemoglobin 13.0g/dl Hematocrit 40.7% Mean Corpuscular Volume 91.1fl Mean Corpuscular Hemoglobin 29.1pg Mean Corpuscular Hemoglobin Concent 31.9g/dl Red Cell Distribution Width 12.4% Platelet Count 95982^3/UL Mean Platelet Volume 9.1fl Neutrophils % 82.9% Lymphocytes % 9.4% Monocytes % 6.4% Eosinophils % 0.6% Basophils % 0.2% Nucleated Red Blood Cells % 0.0/100WBC Neutrophils # 12.010^3/ul Lymphocytes # 1.410^3/ul Monocytes # 0.910^3/ul Eosinophils # 0.110^3/ul Basophils # 0.010^3/ul Nucleated Red Blood Cells # 0.010^3/ul Sodium Level 147mmol/L Potassium Level 3.8mmol/L Chloride Level 101mmol/L Carbon Dioxide Level 25mmol/L Anion Gap 25 Blood Urea Nitrogen 10mg/dl Creatinine 0.74mg/dl Glucose Level 122mg/dl Calcium Level 9.5mg/dl Total Bilirubin 1.2mg/dl Direct Bilirubin 0.00mg/dl Indirect Bilirubin 1.2mg/dl Aspartate Amino Transf (AST/SGOT) 32IU/L Alanine Aminotransferase (ALT/SGPT) 46IU/L Alkaline Phosphatase 111IU/L Total Protein 7.9g/dl Albumin 4.6g/dl Globulin 3.30g/dl Albumin/Globulin Ratio 1.39 Lipase 115U/L Bedside Urine pH (LAB) 6.0 Bedside Urine Protein (LAB) Trace Bedside Urine Glucose (UA) Negative Bedside Urine Ketones (LAB) 2+ Bedside Urine Blood Negative Bedside Urine Nitrite (LAB) Negative Bedside Urine Leukocyte Esterase (L Negative Current Medications Medications (Trade) Dose Ordered Sig/Taty Route PRN Reason Start Time Stop Time Status Last Admin Dose Admin Morphine Sulfate (morphine) 2 mg ONCE ONCE IV 05/13/17 04:00 05/13/17 04:01 DC 05/13/17 04:01 Ondansetron HCl 4 mg 4 mg ONCE STAT IV 05/13/17 03:54 05/13/17 03:56 DC 05/13/17 04:01 Sodium Chloride (NS) 1,000 ml @ 1,000 mls/hr Q1H ONCE IV 05/13/17 04:00 05/13/17 04:59 DC 05/13/17 04:01 Procedures/MDM [place] [address] Radiology Main Line: [phone] DIAGNOSTIC IMAGING REPORT Patient: BRITTANY VELA : 1960 Age: 56 Sex: F MR #: [id number] DOS: 05/13/17 0354 Ordering MD: DIANA KEARNS MD Location: E/R Room/Bed: PROCEDURE: CT Abdomen and pelvis without contrast. CLINICAL INDICATION: Abdominal pain. TECHNIQUE: CT scan of the abdomen and pelvis was performed on a multi- detector high-resolution CT scanner. Contiguous axial images were obtained from the lung bases to the ischial tuberosities without intravenous contrast. Coronal and sagittal reformatted images were also obtained. Images were reviewed on the PACS workstation. One or more of the following dose reduction techniques were used: - Automated exposure control. - Adjustment of the mA and/or kV according to patient size. - Use of iterative reconstruction technique. Exam CTD/vol = 19.07 mGy. Total exam DLP = 1094.06 mGy-cm. COMPARISON: None. FINDINGS: Evaluation of the lung bases demonstrates mild left basilar atelectasis. Abdomen: The liver is normal in size. There is no focal mass or dilatation of the biliary tree. The gallbladder is not distended. Multiple radiolucent gallstones are identified. The spleen, pancreas and bilateral adrenal glands are within normal limits. Bilateral kidneys are normal in size with no contour deforming mass identified. There is no radiopaque renal or ureteral calculus identified. There is no hydronephrosis or hydroureter. There is no retroperitoneal adenopathy. The abdominal aorta is of normal caliber. There is colonic diverticulosis with mild thickening and stranding at the splenic flexure. There is no bowel obstruction or free air. The appendix is not visualized. There is no ascites. Pelvis: The bladder is unremarkable. The uterus and adnexa are within normal limits. There is no significant pelvic adenopathy or free fluid. Evaluation of the osseous structures demonstrates no suspicious lytic or blastic lesion. IMPRESSION: Colonic diverticulosis with mild diverticulitis of the splenic flexure of the colon. Cholelithiasis. Mild left basilar atelectasis. .Jovanni Martinez MD, MD Date Time Electronically viewed and signed by .Jovanni Martinez MD, MD on 05/13/2017 05:09 .T/ CC: DIANA KEARNS MD [place] [address] Radiology Main Line: [phone] DIAGNOSTIC IMAGING REPORT Patient: BRITTANY VELA : 1960 Age: 56 Sex: F MR #: [id number] DOS: 05/13/17 0358 Ordering MD: DIANA KEARNS MD Location: E/R Room/Bed: PROCEDURE: Abdominal ultrasound, limited. CLINICAL INDICATION: Abdominal pain. TECHNIQUE: Multiple real-time images were acquired of the patient's right upper abdomen utilizing a high resolution transducer. COMPARISON: 09/30/2016. FINDINGS: The liver demonstrates increased echogenicity and normal size measuring 14.8 cm. There is no focal mass or intrahepatic biliary ductal dilatation. The portal vein is patent. The gallbladder is not distended. There is a positive sonographic Santiago's sign. Multiple echogenic gallstones are identified. There is no pericholecystic fluid or gallbladder wall thickening. The common bile duct measures 2.2 mm in maximal dimension. The pancreas is obscured by overlying bowel gas. No free fluid is identified. The right kidney is normal size and echogenicity measuring 8.4 cm. There is no focal renal mass or echogenic calculus identified. There is no obstructive uropathy. IMPRESSION: Cholelithiasis with positive sonographic Santiago's sign. There is no gallbladder wall thickening or pericholecystic fluid. Fatty infiltration of the liver. Pancreas obscured by overlying bowel gas. .Jovanni Martinez MD, Date Time Electronically viewed and signed by .Jovanni Martinez MD, on 05/13/2017 04:38 .T/ CC: DIANA KEARNS MD MEDICAL MAKING DECISION: The patient is a 56-year-old female, presenting to the ER because of acute biliary colic. She was treated with 1 L normal saline for clinical dehydration, Tylenol for her fever, morphine 2 mg IV for pain, Zofran formalin IV for now sent with good response. The differential diagnoses considered include but are not limited to cholelithiasis, cholecystitis, cystitis, pancreatitis, hepatitis, gastritis, peptic ulcer disease, gastric ulcer, diverticulitis, cholangitis, choledocholithiasis, partial small bowel obstruction. Departure Diagnosis: Primary Impression: Biliary colic Condition: Good Comments She was discharged with [place] I discussed the findings with the patient. I advised the patient to follow-up with the on-call general surgeon Dr. Mims for elective cholecystectomy about 1-2 days, sooner if needed and return if any concern. DIAAN KEARNS MD May 13, 2017 03:19
[2017-05-13] MEDS ORDERED: ONDANSETRON 4 MG INJ IV STA (03:54)
[2017-05-13 03:58] LABS: URINE BLOOD (Dip) POC Negative (NEGATIVE)
[2017-05-13] MEDS ORDERED: SOD CHLORIDE 0.9% 1,000 ML IV ONE (04:00)
[2017-05-13] MEDS ORDERED: morphine 2 MG INJ IV ONE (04:00)
[2017-05-13 04:10] LABS: BASOPHILS % 0.2 % (0.0-2.0); EOSINOPHILS # 0.1 10^3/ul (0.0-0.5); EOSINOPHILS % 0.6 % (0.0-7.0); HEMATOCRIT 40.7 % (37.0-47.0); LYMPHOCYTES # 1.4 10^3/ul (0.8-2.9); LYMPHOCYTES % 9.4 % (15.0-51.0); MEAN CORPUSCULAR HEMOGLOBIN 29.1 pg (29.0-33.0); MEAN CORPUSCULAR HGB CONC 31.9 g/dl (32.0-37.0); MEAN CORPUSCULAR VOLUME 91.1 fl (82.0-101.0); MEAN PLATELET VOLUME 9.1 fl (7.4-10.4); MONOCYTE # 0.9 10^3/ul (0.3-0.9); MONOCYTES % 6.4 % (0.0-11.0); NEUTROPHILS % 82.9 % (39.0-77.0); PLATELET COUNT 309 10^3/UL (140-415); RED BLOOD COUNT 4.47 10^6/ul (4.20-5.40); RED CELL DISTRIBUTION WIDTH 12.4 % (11.5-14.5); WHITE BLOOD COUNT 14.5 10^3/ul (4.8-10.8)
[2017-05-13 04:13] LABS: ADD SCAN DIFF NO
[2017-05-13 04:26] LABS: ALBUMIN 4.6 g/dl (3.3-4.9); ALBUMIN/GLOBULIN RATIO 1.39; BILIRUBIN,INDIRECT 1.2 mg/dl (0-1.1); BILIRUBIN,TOTAL 1.2 mg/dl (0.2-1.3); CALCIUM 9.5 mg/dl (8.4-10.2); CREATININE 0.74 mg/dl (0.44-1.00); POTASSIUM 3.8 mmol/L (3.5-5.1); TOTAL PROTEIN 7.9 g/dl (6.1-8.1)
--- NOTE | 2017-05-13 04:38 | RADRPT ---
PROCEDURE: Abdominal ultrasound, limited. CLINICAL INDICATION: Abdominal pain. TECHNIQUE: Multiple real-time images were acquired of the patient's right upper abdomen utilizing a high resolution transducer. COMPARISON: 09/30/2016. FINDINGS: The liver demonstrates increased echogenicity and normal size measuring 14.8 cm. There is no focal mass or intrahepatic biliary ductal dilatation. The portal vein is patent. The gallbladder is not distended. There is a positive sonographic Santiago's sign. Multiple echogenic gallstones are identi fied. There is no pericholecystic fluid or gallbladder wall thickening. The common bile duct measu res 2.2 mm in maximal dimension. The pancreas is obscured by overlying bowel gas. No free fluid is identified. The right kidney is normal size and echogenicity measuring 8.4 cm. There is no focal renal mass or echogenic calculus identified. There is no obstructive uropathy. IMPRESSION: Cholelithiasis with positive sonographic Santiago's sign. There is no gallbladder wall thickening or pericholecystic fluid. Fatty infiltration of the liver. Pancreas obscured by overlying bowel gas. .Jovanni Martinez MD, MD Date Time Electronically viewed and signed by .Jovanni Martinez MD, MD on 05/13/2017 04:38 .T/
--- NOTE | 2017-05-13 05:09 | RADRPT ---
PROCEDURE: CT Abdomen and pelvis without contrast. CLINICAL INDICATION: Abdominal pain. TECHNIQUE: CT scan of the abdomen and pelvis was performed on a multi-detector high-resolution CT scanner. Contiguous axial images were obtained from the lung bases to the ischial tuberosities wit hout intravenous contrast. Coronal and sagittal reformatted images were also obtained. Images were reviewed on the PACS workstation. One or more of the following dose reduction techniques were used: - Automated exposure control. - Adjustment of the mA and/or kV according to patient size. - Use of iterative reconstruction technique. Exam CTD/vol = 19.07 mGy. Total exam DLP = 1094.06 mGy-cm. COMPARISON: None. FINDINGS: Evaluation of the lung bases demonstrates mild left basilar atelectasis. Abdomen: The liver is normal in size. There is no focal mass or dilatation of the biliary tree. T he gallbladder is not distended. Multiple radiolucent gallstones are identified. The spleen, pancr eas and bilateral adrenal glands are within normal limits. Bilateral kidneys are normal in size wit h no contour deforming mass identified. There is no radiopaque renal or ureteral calculus identifie d. There is no hydronephrosis or hydroureter. There is no retroperitoneal adenopathy. The abdomin al aorta is of normal caliber. There is colonic diverticulosis with mild thickening and stranding at the splenic flexure. There is no bowel obstruction or free air. The appendix is not visualized. There is no ascites. Pelvis: The bladder is unremarkable. The uterus and adnexa are within normal limits. There is no significant pelvic adenopathy or free fluid. Evaluation of the osseous structures demonstrates no suspicious lytic or blastic lesion. IMPRESSION: Colonic diverticulosis with mild diverticulitis of the splenic flexure of the colon. Cholelithiasis. Mild left basilar atelectasis. .Jovanni Martinez MD, Date Time Electronically viewed and signed by .Jovanni Martinez MD, MD on 05/13/2017 05:09 .T/
[2017-05-13] MEDS ORDERED: ONDA4TAB14 PO (06:04)
[2017-05-13] MEDS ORDERED: HYDR-906 PO (06:04)
[2017-05-13 06:47] VITALS: BP 133/68; PULSE 71; RESP 21; TEMP 98.5
== END 2017-05-13 07:12 | disposition home or self-care (01) ==
LOC: E/R 01:54
DX: K80.50 Calculus of bile duct without cholangitis or cholecystitis without obstruction (principal); I10 Essential (primary) hypertension; R11.0 Nausea; R40.2142 Coma scale, eyes open, spontaneous, at arrival to emergency department; R40.2252 Coma scale, best verbal response, oriented, at arrival to emergency department; R40.2362 Coma scale, best motor response, obeys commands, at arrival to emergency department
CPT/HCPCS: 36415; 74176; 76705; 80053; 81003; 83690; 85025; 96374; 96375; J2270; J2405; J7030; Z7502